=== PATIENT | male | born 1960 | race Caucasian/White ===

== ENCOUNTER 2017-01-10 15:12 | Emergency (ER) | payer MEDICARE ==
[~2017-01-10] VITALS: Ht 182.9 cm; Wt 94.5 kg
[2017-01-10] MEDS ORDERED: METHY25TA (15:36)
[2017-01-10] MEDS ORDERED: LISI-538 (15:36)
[2017-01-10] MEDS ORDERED: SIMVPOW2 (15:36)
[2017-01-10] MEDS ORDERED: METO100T5 (15:36)
[2017-01-10] MEDS ORDERED: CARV12.5 (15:36)
[2017-01-10] MEDS ORDERED: GLIM1TAB (15:36)
[2017-01-10] MEDS ORDERED: HYDR-3911 (15:36)
[2017-01-10] MEDS ORDERED: POTA1TAB23 (15:36)
[2017-01-10] MEDS ORDERED: TORS20TA2 (15:36)
[2017-01-10] MEDS ORDERED: CLOP75TA2 (15:36)
[2017-01-10] MEDS ORDERED: METR1TAB66 (15:36)
[2017-01-10] MEDS ORDERED: RANO5TAB PO (15:36)
[2017-01-10] MEDS ORDERED: PANT40TA2 (15:36)
[2017-01-10 17:38] LABS: MEAN CORPUSCULAR HEMOGLOBIN 31.5 pg (27.0-33.0); MEAN CORPUSCULAR HGB CONC 35.2 g/dl (32.0-36.5); MEAN CORPUSCULAR VOLUME 89.5 fl (80.0-96.0); RED CELL DISTRIBUTION WIDTH 12.6 % (11.5-14.5); WHITE BLOOD COUNT 5.3 K/mm3 (4.0-10.0)
[2017-01-10 18:00] LABS: ANION GAP 7 MEQ/L (8-16); BLOOD UREA NITROGEN 24 MG/DL (7-18); CALCIUM LEVEL 8.5 MG/DL (8.5-10.1); CARBON DIOXIDE LEVEL 30 MEQ/L (21-32); CHLORIDE LEVEL 105 MEQ/L (98-107); CREATININE FOR GFR 1.17 MG/DL (0.70-1.30); GLOMERULAR FILTRATION RATE > 60.0 (>56); GLUCOSE, FASTING 100 MG/DL (70-105); POTASSIUM SERUM 3.9 MEQ/L (3.5-5.1); SODIUM LEVEL 142 MEQ/L (136-145)
--- NOTE | 2017-01-10 18:02 | REP ---
Clinical: Right lower extremity pain . Technique: Song scale and color Doppler evaluation using linear high frequency transducer. Findings: Ultrasound examination of the right lower extremity deep venous structures from the common femoral vein to the popliteal vein demonstrates normal compressibility flow and wave patterns in response to respiration and augmentation. There is no evidence for deep venous thrombosis. Impression: No evidence for deep venous thrombosis. Signed by Manny Miguel MD 01/10/2017 05:53 P
[2017-01-10] MEDS ORDERED: TRAM50TA2 PO (18:27)
[2017-01-10 19:01] VITALS: BP 131/76
== END 2017-01-10 19:28 | disposition home or self-care (01) ==
LOC: M ED 15:12
DX: M54.10 Radiculopathy, site unspecified (principal); M79.602 Pain in left arm; M79.604 Pain in right leg; Z87.891 Personal history of nicotine dependence

== ENCOUNTER → 2020-01-25 | Outpatient (CLI) | payer MEDICARE ==
[~2020-01-25] MED LIST: ALLO10TA PO; CARV12.5 PO; CILO100T PO; CLONI1TA PO; CLOP75TA2 PO; ELIQ5TAB PO; FURO80TA2 PO; GLIM1TAB4 PO; HYDR-3911 PO; IRBE75TA4 PO; LISI-538 PO; METHY25TA PO; METO100T5 PO; METR-265; PANT40TA29 PO; POTA1TAB23 PO; RANO500T7 PO; SIMV20TA22 PO; SIMVPOW2; TORS20TA2; TRAM50TA2 PO
== END ==
LOC: M LABSMTC 09:10
PROVIDERS: ATTEND Anesthesiology
DX: Z01.812 Encounter for preprocedural laboratory examination (principal); Z20.828 Contact with and (suspected) exposure to other viral communicable diseases
CPT/HCPCS: C9803; U0003

== ENCOUNTER 2020-01-30 09:12 | Day surgery (SDC) | payer MEDICARE ==
[~2020-01-30] VITALS: Ht 182.9 cm; Wt 103.4 kg
[~2020-01-30 09:12] MED LIST changes: +LIDOCAINE 2% 100MG/5ML SDV (FOR ANES.) As Ordered ONE; +NS 1,000 ML IV ONE; +propofoL 200 MG/20 ML VIAL As Ordered ONE
--- NOTE | 2020-01-30 10:35 | ROOR ---
Patient Name: Manny Champion Procedure Date: 01/30/2020 9:38 AM Date of : 1960 Age: 59 Room: [facility] Gender: Male Note Status: Finalized Procedure: Colonoscopy Indications: High risk colon cancer surveillance: Personal history of adenoma less than 10 mm in size, Last colonoscopy: September 2013 Providers: Adonay Thompson MD Referring MD: Jason Bocanegra MD Requesting Provider: Medicines: Monitored Anesthesia Care Complications: No immediate complications. Procedure: Pre-Anesthesia Assessment: - Prior to the procedure, a History and Physical was performed, and patient medications and allergies were reviewed. The patient is competent. The risks and benefits of the procedure and the sedation options and risks were discussed with the patient. All questions were answered and informed consent was obtained. Patient identification and proposed procedure were verified by the physician, the nurse and the anesthesiologist in the procedure room. Mental Status Examination: alert and oriented. Airway Examination: normal oropharyngeal airway and neck mobility. Prophylactic Antibiotics: The patient does not require prophylactic antibiotics. Prior Anticoagulants: The patient has taken Eliquis (apixaban), last dose was 3 days prior to procedure. ASA Grade Assessment: III - A patient with severe systemic disease. After reviewing the risks and benefits, the patient was deemed in satisfactory condition to undergo the procedure. The anesthesia plan was to use monitored anesthesia care (MAC). Immediately prior to administration of medications, the patient was re-assessed for adequacy to receive sedatives. The heart rate, respiratory rate, oxygen saturations, blood pressure, adequacy of pulmonary ventilation, and response to care were monitored throughout the procedure. The physical status of the patient was re-assessed after the procedure. The Colonoscope was introduced through the anus and advanced to the cecum, identified by the ileocecal valve. The colonoscopy was performed without difficulty. The patient tolerated the procedure well. The quality of the bowel preparation was good. Findings: The perianal and digital rectal examinations were normal. A 2 mm polyp was found in the hepatic flexure. The polyp was sessile. The polyp was removed with a jumbo cold forceps. Resection and retrieval were complete. Estimated blood loss was minimal. A 3 mm polyp was found in the transverse colon. The polyp was sessile. The polyp was removed with a cold snare. Resection and retrieval were complete. Estimated blood loss was minimal. The exam was otherwise without abnormality. Impression: - One 2 mm polyp at the hepatic flexure, removed with a jumbo cold forceps. Resected and retrieved. - One 3 mm polyp in the transverse colon, removed with a cold snare. Resected and retrieved. - The examination was otherwise normal. Recommendation: - Discharge patient to home. - Resume previous diet. - Continue present medications. - Await pathology results. - If the pathology report reveals adenomatous tissue, then repeat the colonoscopy for surveillance in 3 - 5 years. Adonay Thompson MD Adonay Thompson MD 01/30/2020 10:35:27 AM Electronically signed by Adonay Thompson MD Number of Addenda: 0 Note Initiated On: 01/30/2020 9:38 AM Estimated Blood Loss: Estimated blood loss was minimal.
[2020-01-30 10:50] VITALS: BP 131/73
== END 2020-01-30 11:12 | disposition home or self-care (01) ==
LOC: M OPP 09:12
PROVIDERS: ATTEND Surgery
DX: Z12.11 Encounter for screening for malignant neoplasm of colon (principal); Z86.010 Personal history of colon polyps; D12.3 Benign neoplasm of transverse colon; E11.9 Type 2 diabetes mellitus without complications; I51.9 Heart disease, unspecified; F17.210 Nicotine dependence, cigarettes, uncomplicated; Z95.5 Presence of coronary angioplasty implant and graft; Z95.810 Presence of automatic (implantable) cardiac defibrillator

== ENCOUNTER → 2020-08-06 | Outpatient (CLI) | payer MEDICARE ==
[~2020-08-06] MED LIST changes: +CLON0.2T PO; +HYDR-3715 PO; -LIDOCAINE 2% 100MG/5ML SDV (FOR ANES.) As Ordered ONE; -LISI-538 PO; +LISI20TA33 PO; -NS 1,000 ML IV ONE; -propofoL 200 MG/20 ML VIAL As Ordered ONE
== END ==
LOC: M LABSMTC 09:57
PROVIDERS: ATTEND Anesthesiology
DX: Z01.812 Encounter for preprocedural laboratory examination (principal); Z20.822 Contact with and (suspected) exposure to COVID-19

== ENCOUNTER 2020-08-11 11:11 | Day surgery (SDC) | payer MEDICARE ==
[~2020-08-11] VITALS: Ht 182.9 cm; Wt 98.9 kg
[~2020-08-11 11:11] MED LIST changes: -HYDR-3715 PO; +LR 1,000 ML IV ONE
[2020-08-11] MEDS ORDERED: KETOROLAC 60MG 2ML VIAL As Ordered ONE (12:11)
[2020-08-11] MEDS ORDERED: fentaNYL 250 MCG/5 ML INJECTION (J3010) As Ordered ONE (12:11)
[2020-08-11] MEDS ORDERED: ONDANSETRON 4MG/2ML VIAL As Ordered ONE (12:11)
[2020-08-11] MEDS ORDERED: MIDAZOLAM INJ 2MG/2ML VIAL (J2250 PER 1MG) As Ordered ONE (12:11)
[2020-08-11] MEDS ORDERED: dexameTHASONE 4 MG/ML 1ML VIAL (J1100 PER 1MG) As Ordered ONE (12:11)
[2020-08-11] MEDS ORDERED: ROCURONIUM BROMIDE 50 MG/5 ML VIAL As Ordered ONE ×2 (12:12→15:11)
[2020-08-11] MEDS ORDERED: LIDOCAINE 2% 100MG/5ML SDV (FOR ANES.) As Ordered ONE (12:12)
[2020-08-11] MEDS ORDERED: propofoL 200 MG/20 ML VIAL As Ordered ONE (12:12)
[2020-08-11] MEDS ORDERED: ETOMIDATE INJ 20MG/10ML VIAL As Ordered ONE (13:02)
[2020-08-11] MEDS ORDERED: BUPIVACAINE HCL 0.25% 30ML VIAL As Ordered ONE (14:04)
[2020-08-11] MEDS ORDERED: ACETAMINOPHEN 1000MG 100ML IV BTL (OFIRMEV) (J0131 PER 10MG) As Ordered ONE (15:10)
[2020-08-11] MEDS ORDERED: PHENYLephrine 500MCG 5ML (100MCG/ML) SYRINGE As Ordered ONE (15:13)
[2020-08-11] MEDS ORDERED: SUGAMMADEX SODIUM 500 MG/5 ML VIAL (BRIDION) As Ordered ONE (16:12)
[2020-08-11] MEDS ORDERED: fentaNYL 100 MCG/2 ML INJECTION (J3010) As Ordered ONE (16:53)
[2020-08-11] MEDS ORDERED: HYDR-3715 PO (16:57)
[2020-08-11] MEDS ORDERED: oxyCODONE 5MG TAB PO PRN (17:00)
[2020-08-11] MEDS ORDERED: ONDANSETRON 4MG/2ML VIAL IV PRN (17:00)
[2020-08-11] MEDS ORDERED: fentaNYL 100 MCG/2 ML INJECTION (J3010) IV PRN (17:00)
[2020-08-11] MEDS ORDERED: METOCLOPRAMIDE INJ 10MG/2ML VIAL (J2765 PER 1) IV PRN (17:00)
[2020-08-11] MEDS ORDERED: LR 1,000 ML IV SCH (17:00)
[2020-08-11] MEDS ORDERED: ACETAMINOPHEN TAB 650MG DOSE (2X325MG) PO PRN (18:00)
[2020-08-11] MEDS ORDERED: NORCO, ANEXSIA 5/325MG TABLET (HYDROcodone/ACETAMINOPHEN) PO PRN (18:00)
[2020-08-11 18:45] VITALS: BP 162/78
--- NOTE | 2020-08-12 08:02 | RO ---
OPERATIVE NOTE DATE OF OPERATION: 08/11/2020 PREOPERATIVE DIAGNOSIS: Right inguinal hernia. POSTOPERATIVE DIAGNOSIS: Large, indirect right inguinal hernia. PROCEDURE PERFORMED: Robotic-assisted laparoscopic right inguinal herniorrhaphy with mesh. MESH UTILIZED: [employer] ProGrip, reference code [id number] and lot number [id number]. SURGEON: Adonay Thompson MD CLIENT SERVICE COORDINATOR: RUBI Sanchez. Rosario's assistance was essential for placement of the trocars, and docking of the robot with change of instruments. She prepared the mesh for insertion and placement. ANESTHESIA: General. INDICATIONS FOR THE PROCEDURE: The patient is a 60-year-old man with a large right inguinal hernia for repair. OPERATIVE PROCEDURE: The patient was brought to the operating room and placed on the table in a supine position. He was placed under general endotracheal anesthesia. The patient's abdomen was prepped and draped in a sterile fashion. A 0.25% Marcaine was infiltrated at the trocar sites as needed. A short transverse supraumbilical midline incision was made and a Veress needle was inserted. After a positive hanging drop test, the abdomen was inflated with carbon dioxide gas, and an 8-mm port was placed over the scope and advanced through the abdominal wall without difficulty. Initial examination showed no evidence of trocar injury. The patient was tilted to an approximate 15 degree Trendelenburg position. A definite right inguinal hernia was identified. There was no significant evidence for a left inguinal hernia. Two additional ports were placed, one on the right and one on the left. The patient cart of the [employer] Zuleyka Xi robot was brought into position and the middle port was connected to the endoscope arm. The endoscope was inserted and targeting took place in the right side of the pelvis. The additional arms were then docked, and a fenestrated bipolar and cauterizing scissors were inserted. I then moved to the control console to proceed with the operation. The hernia was inspected and there was a large, indirect right inguinal hernia with some portion of the cecum sitting adjacent to the opening. A preperitoneal flap was created beginning at the medial umbilical ligament and extending laterally, and then inferiorly. The flap was developed medially down to the symphysis pubis and then laterally to clear the lateral fascia. The hernia sac was then carefully dissected free from the cord structures. The hernia sac was quite large and was gradually invaginated completely into the abdomen. Hemostasis was ensured with the cautery. Once the preperitoneal space had been prepared, the ProGrip mesh was inserted into the abdomen. This was centered over the opening of the internal ring. This was unfolded and the adherent side was gently pressed into the overlying soft tissues of the inguinal floor. The mesh fit the preperitoneal space very nicely. The peritoneal flap was then closed beginning laterally with a running suture of 2-0 V-Loc. As the closure progressed, the pressure within the abdomen was reduced first to 10 mmHg and then to 8 mmHg. The patient was also tilted gradually to a flat and then a slight reverse Trendelenburg position as the last sutures were placed. The inverted hernia sac had been sutured into the closure to maintain inversion. The completed closure was excellent with complete coverage of the mesh. The robotic instruments were then withdrawn and the robot was undocked and removed. The abdomen was deflated and the trocars were removed. I closed the skin incisions with buried sutures of 4-0 Vicryl and Steri-Strips were applied. Light dressings were applied. I would note that in the general inspection of the abdomen after placement of the trocars, that the patient was noted to have multiple cysts on the anterior surface primarily of the left lobe of the liver and to a lesser extent the right lobe of the liver. These ranged up to at least several centimeters in diameter. The patient was awakened in the operating room, extubated, and moved to the recovery room in stable condition.
== END 2020-08-11 18:45 | disposition home or self-care (01) ==
LOC: M SDC 11:11
PROVIDERS: ATTEND Surgery
DX: K40.90 Unilateral inguinal hernia, without obstruction or gangrene, not specified as recurrent (principal); K76.89 Other specified diseases of liver; I11.0 Hypertensive heart disease with heart failure; I50.9 Heart failure, unspecified; I48.91 Unspecified atrial fibrillation; E11.9 Type 2 diabetes mellitus without complications; E78.00 Pure hypercholesterolemia, unspecified; I25.2 Old myocardial infarction; I25.10 Atherosclerotic heart disease of native coronary artery without angina pectoris; K21.9 Gastro-esophageal reflux disease without esophagitis; M10.9 Gout, unspecified; R06.83 Snoring; Z95.5 Presence of coronary angioplasty implant and graft; Z95.0 Presence of cardiac pacemaker; F17.210 Nicotine dependence, cigarettes, uncomplicated; Z79.899 Other long term (current) drug therapy; Z79.02 Long term (current) use of antithrombotics/antiplatelets
CPT/HCPCS: 49650; C1781; J0131; J1100; J1885; J2250; J2370; J2405; J3010; S2900

== ENCOUNTER → 2021-08-17 | Outpatient (CLI) | payer MEDICARE ==
[~2021-08-17] MED LIST changes: +HYDR-3715 PO; -LR 1,000 ML IV ONE
[2021-08-17 15:37] LABS: BASO # 0.1 10^3/uL (0.0-0.2); BASO % 1.3 % (0.0-1.0); EOS # 0.2 10^3/uL (0.0-0.5); EOS % 2.5 % (0.0-3.0); HEMATOCRIT 45.2 % (42.0-52.0); HEMOGLOBIN 15.5 g/dl (13.5-17.5); LYMPH # 3.2 10^3/uL (1.5-5.0); LYMPH % 32.3 % (24.0-44.0); MEAN CORPUSCULAR HEMOGLOBIN 31.8 pg (27.0-33.0); MEAN CORPUSCULAR HGB CONC 34.3 g/dl (32.0-36.5); MEAN CORPUSCULAR VOLUME 92.6 fl (80.0-96.0); MONO # 0.7 10^3/uL (0.0-0.8); MONO % 7.4 % (2.0-8.0); NEUTROPHILS # 5.4 10^3/uL (1.5-8.5); NEUTROPHILS % 55.1 % (36.0-66.0); PLATELET COUNT, AUTOMATED 227 10^3/uL (150-450); RED BLOOD COUNT 4.88 10^6/uL (4.30-6.10); WHITE BLOOD COUNT 9.7 10^3/uL (4.0-10.0)
[2021-08-17 15:42] LABS: BLOOD UREA NITROGEN 24 MG/DL (7-18); CALCIUM LEVEL 8.9 MG/DL (8.8-10.2); CARBON DIOXIDE LEVEL 27 MEQ/L (21-32); CHLORIDE LEVEL 103 MEQ/L (98-107); CREATININE FOR GFR 1.06 MG/DL (0.70-1.30); GLOMERULAR FILTRATION RATE > 60.0 (>49); GLUCOSE, FASTING 316 MG/DL (70-100); POTASSIUM SERUM 3.6 MEQ/L (3.5-5.1); SODIUM LEVEL 139 MEQ/L (136-145)
[2021-08-17 15:48] LABS: INR 1.28; PROTHROMBIN TIME 16.4 SECONDS (12.7-14.5)
[2021-08-17 15:54] LABS: PARTIAL THROMBOPLASTIN TIME 31.5 SECONDS (25.9-37.0)
== END ==
LOC: M PLALAB 13:50
PROVIDERS: ATTEND Surgery Vascular Surgery
DX: Z01.818 Encounter for other preprocedural examination (principal); D69.8 Other specified hemorrhagic conditions; I70.213 Atherosclerosis of native arteries of extremities with intermittent claudication, bilateral legs

== ENCOUNTER → 2021-08-21 | Outpatient (CLI) | payer MEDICARE | LOC: M LABSMTC 08:50 | PROVIDERS: ATTEND Surgery Vascular Surgery | DX: Z20.822 Contact with and (suspected) exposure to COVID-19 (principal) ==

== ENCOUNTER → 2022-07-18 | Outpatient (CLI) | payer MEDICARE ==
[~2022-07-18] MED LIST changes: -CILO100T PO; +CILO100T3 PO
== END ==
LOC: M RAD 09:55
PROVIDERS: ATTEND Physician Assistant
DX: I70.203 Unspecified atherosclerosis of native arteries of extremities, bilateral legs (principal); Z95.820 Peripheral vascular angioplasty status with implants and grafts

== ENCOUNTER → 2023-06-23 | Outpatient (CLI) | payer MEDICARE, OTHER ==
[~2023-06-23] MED LIST changes: -HYDR-3911 PO; +HYDR50TA46 PO; +IRBE75TA11 PO; -IRBE75TA4 PO
== END ==
LOC: M RAD 11:51
PROVIDERS: ATTEND Physician Assistant
DX: I70.213 Atherosclerosis of native arteries of extremities with intermittent claudication, bilateral legs (principal)

== ENCOUNTER → 2023-07-25 | Outpatient (CLI) | payer OTHER ==
[2023-07-25 15:33] LABS: BASO # 0.1 10^3/uL (0.0-0.2); BASO % 1.1 % (0.0-1.0); EOS # 0.3 10^3/uL (0.0-0.5); EOS % 3.1 % (0.0-3.0); HEMATOCRIT 35.6 % (42.0-52.0); HEMOGLOBIN 12.5 g/dl (13.5-17.5); LYMPH # 2.5 10^3/uL (1.5-5.0); LYMPH % 30.3 % (24.0-44.0); MEAN CORPUSCULAR HEMOGLOBIN 33.7 pg (27.0-33.0); MEAN CORPUSCULAR HGB CONC 35.1 g/dl (32.0-36.5); MONO # 0.6 10^3/uL (0.0-0.8); MONO % 7.9 % (2.0-8.0); NEUTROPHILS # 4.6 10^3/uL (1.5-8.5); NEUTROPHILS % 56.9 % (36.0-66.0); PLATELET COUNT, AUTOMATED 245 10^3/uL (150-450); RED BLOOD COUNT 3.71 10^6/uL (4.30-6.10); WHITE BLOOD COUNT 8.1 10^3/uL (4.0-10.0)
[2023-07-25 15:43] LABS: ALBUMIN 3.6 G/DL (3.2-5.2); ALKALINE PHOSPHATASE 57 U/L (46-116); ALT/SGPT 15 U/L (7.0-40); AST/SGOT 13 U/L (<34); BILIRUBIN,TOTAL 0.5 MG/DL (0.3-1.2); BLOOD UREA NITROGEN 19 MG/DL (9-23); CALCIUM LEVEL 8.9 MG/DL (8.3-10.6); CARBON DIOXIDE LEVEL 30 MMOL/L (20-31); CHLORIDE LEVEL 110 MMOL/L (98-107); CHOLESTEROL LEVEL 127 MG/DL (<200); CHOLESTEROL RISK RATIO 2.76 (<5); CREATININE FOR GFR 0.91 MG/DL (0.70-1.30); GLOMERULAR FILTRATION RATE > 60.0 (>49); GLUCOSE, FASTING 83 MG/DL (74-106); HDL CHOLESTEROL 45.9 MG/DL (>40); LDL CHOLESTEROL 58.5 MG/DL (<100); MAGNESIUM LEVEL 1.8 MG/DL (1.8-2.4); NON-HDL-C 81.1 MG/DL; POTASSIUM SERUM 3.3 MMOL/L (3.5-5.1); SODIUM LEVEL 139 MMOL/L (136-145); TOTAL PROTEIN 6.2 G/DL (5.7-8.2); TRIGLYCERIDES LEVEL 113 MG/DL (<150)
[2023-07-25 15:44] LABS: FREE T4 1.55 NG/DL (0.89-1.76)
[2023-07-25 15:45] LABS: THYROID STIMULATING HORMONE 0.955 uIU/ML (0.55-4.78)
[2023-07-25 15:51] LABS: HEMOGLOBIN A1c 5.2 % (4.0-6.0)
== END ==
LOC: M PLALAB 12:30
PROVIDERS: ATTEND Internal Medicine Cardiovascular Disease
DX: E11.9 Type 2 diabetes mellitus without complications (principal); E78.5 Hyperlipidemia, unspecified; D64.9 Anemia, unspecified; E83.42 Hypomagnesemia; E03.9 Hypothyroidism, unspecified

== ENCOUNTER → 2024-02-29 | Outpatient (CLI) | payer MEDICARE ==
[~2024-02-29] MED LIST changes: -GLIM1TAB4 PO; +GLIM1TAB84 PO
== END ==
LOC: M RAD 11:01
PROVIDERS: ATTEND Physician Assistant
DX: I70.213 Atherosclerosis of native arteries of extremities with intermittent claudication, bilateral legs (principal)